=== PATIENT | female | born 1950 | race Caucasian/White ===

== ENCOUNTER 2018-03-08 09:31 | Emergency (ER) | payer MEDICARE, BC ==
[2018-03-08 09:54] VITALS: BP 129/82
--- NOTE | 2018-03-08 10:27 | ED ---
Throat Pain/Nasal Congestion - HPI Summary HPI Summary: 67 yr old female with swelling of the right upper eyelid. Onset a week ago, and associated with swelling and redness to the upper eyelid. Initially began with pain in the eyelid. She did not have itching No fever, chills. No eyeball pain. No other complaints. - History of Current Complaint Chief Complaint: UCSkin Time Seen by Provider: 03/08/18 10:08 - Allergies/Home Medications Allergies/Adverse Reactions: Allergies Allergy/AdvReac Type Severity Reaction Status Date / Time No Known Allergies Allergy Verified 03/08/18 09:54 Home Medications: Home Medications Acetaminophen [APAP] 650 mg PO DAILY PRN 03/08/18 [History Confirmed 03/08/18] Alendronate Sodium 70 mg PO WEEKLY 03/08/18 [History Confirmed 03/08/18] PMH/Surg Hx/FS Hx/Imm Hx - Surgical History Surgery Procedure, Year, and Place: 2014 emergency appy Infectious Disease History: No Infectious Disease History: Denies: Traveled Outside the [place] in Last 30 Days - Family History Known Family History: Positive: None - Social History Alcohol Use: Occasionally Substance Use Type: Reports: None Smoking Status (MU): Never Smoked Tobacco Review of Systems Constitutional: Negative Positive: Other - right upper eyelid swelling, red, pain. Negative: Photophobia , Blurred Vision, Diplopia All Other Systems Reviewed And Are Negative: Yes Physical Exam Triage Information Reviewed: Yes Vital Signs On Initial Exam: Initial Vitals Temp Pulse Resp BP Pulse Ox 98.8 F 61 18 129/82 99 03/08/18 09:47 03/08/18 09:47 03/08/18 09:47 03/08/18 09:47 03/08/18 09:47 Vital Signs Reviewed: Yes Appearance: Positive: Well-Appearing, No Pain Distress Skin: Positive: Other - no vesicles, no redness to forehead. Head/Face: Positive: Normal Head/Face Inspection, Other - some upper right eyelid swelling. Eyes: Positive: EOMI, MARILIA, Other: - right upper eyelid with erythema, hordeolum internum. No FB seen. No drainage. ENT: Positive: Pharynx normal Neck: Positive: Nontender Respiratory/Lung Sounds: Positive: Other - normal effort. Negative: Stridor Abdomen Description: Negative: Distended Musculoskeletal: Positive: Strength/ROM Intact Neurological: Positive: Sensory/Motor Intact, Alert, Oriented to Person Place, Time, CN Intact II-III Psychiatric: Positive: Normal - [place] Coma Scale Best Eye Response: 4 - Spontaneous Best Motor Response: 6 - Obeys Commands Best Verbal Response: 5 - Oriented Coma Scale Total: 15 Diagnostics - Vital Signs Vital Signs Temp Pulse Resp BP Pulse Ox 03/08/18 09:47 98.8 F 61 18 129/82 99 - Laboratory Lab Statement: Any lab studies that have been ordered have been reviewed, and results considered in the medical decision making process. EENT Course/Dx - Course Course Of Treatment: 67 yr old with hordeolum internum. Rx keflex and erythro eye ointment. She has Dr Becerra as her eye doctor. She will see her in the office in followup. - Diagnoses Provider Diagnoses: Hordeolum internum of right upper eyelid Discharge - Sign-Out/Discharge Documenting (check all that apply): Discharge/Admit/Transfer - Discharge Plan Condition: Good Disposition: HOME Prescriptions: Cephalexin CAP* [Keflex CAP*] 500 mg PO QID #40 cap Erythromycin OPTH OINT* [Erythromycin 0.5% OPTH OINT*] 1 applic RIGHT EYE TID # 1 tube Patient Education Materials: Vanessa (ED) Referrals: Devora Rodriguez MD [Primary Care Provider] - Additional Instructions: [facility] review [facility] care center in [place], [place] DirectionsWebsite Address: [address] [place] [address] Open today 8AM6PM - Billing Disposition and Condition Condition: GOOD Disposition: Home
== END 2018-03-08 10:37 | disposition home or self-care (01) ==
LOC: UCCORT 09:31
DX: H00.021 Hordeolum internum right upper eyelid (principal)
CPT/HCPCS: 99202; G0463